=== PATIENT | female | born 1995 | race Hispanic/Latino ===

== ENCOUNTER 2021-08-22 10:04 | Emergency (ER) | payer SELFPAY ==
[2021-08-22 11:32] LABS: Bacteria,Urine 1+ /HPF (Negative); Bilirubin,Urine NEG (Negative); Blood,Urine LG (Negative); Color,Urine Yellow (Yellow); Mucus,Urine 2+ /HPF; Urobilinogen,Urine < 2.0 mg/dL (<2.0)
[2021-08-22 11:37] LABS: HCG Qualitative,Urine Negative (Negative)
[2021-08-22] MEDS ORDERED: LIDOCAINE-MPF (1%) 10 MG/1 ML VIAL 5 ML INFILTRATI ONE (12:23)
--- NOTE | 2021-08-22 12:24 | Emergency Department Report ---
ED Female HPI - General Chief complaint: Urogenital-Female Stated complaint: VAGINAL DISCHARGE Time Seen by Provider: 08/22/21 12:10 Source: patient Mode of arrival: Ambulatory Limitations: No Limitations - History of Present Illness Initial comments: 25-year-old female presents to the emergency room planing that she is having some vaginal discharge and vaginal bleeding. She is concerned she may have STD will like to be treated. Patient reports she has a history of anxiety asthma PCOS and diabetes. She states that she feels this way sometimes her blood sugars at work. Blood sugar today was 171. Patient is currently being treated with Metformin. She denies any alcohol use over the holidays. States that she is allergic to latex and aspirin. MD Complaint: vaginal discharge, possible STD Onset/Timin -: days(s) Location: suprapubic Severity: mild Severity scale (0 -10): 0 Improves with: none Worsens with: none Are you Now?: No Last Menstrual Period: 08/20/21 EDC: 05/27/22 - Related Data Sexually active: Yes Previous Rx's Medication Instructions Recorded Last Taken Type Amoxicillin/K Clav Tab [Augmentin 1 tab PO Q12HR #20 tab 03/26/16 Unknown Rx 875 mg] Doxycycline Hyclate [Doxycycline 100 mg PO Q12HR 10 Days #20 tab 08/22/21 Unknown Rx Hyclate TAB] Allergies Allergy/AdvReac Type Severity Reaction Status Date / Time aspirin Allergy Unknown Verified 03/26/16 16:26 Latex, Natural Rubber Allergy Unknown Verified 03/26/16 16:26 ED Review of Systems ROS: Stated complaint: VAGINAL DISCHARGE Other details as noted in HPI Comment: All other systems reviewed and negative ED Past Medical Hx - Past Medical History Previous Medical History?: Yes Hx Asthma: Yes - Surgical History Past Surgical History?: No - Social History Smoking Status: Never Smoker Substance Use Type: None - Medications Home Medications: Home Medications Medication Instructions Recorded Confirmed Last Taken Type Amoxicillin/K Clav Tab [Augmentin 1 tab PO Q12HR #20 tab 03/26/16 Unknown Rx 875 mg] Doxycycline Hyclate [Doxycycline 100 mg PO Q12HR 10 Days #20 tab 08/22/21 Unknown Rx Hyclate TAB] ED Physical Exam - General Limitations: No Limitations General appearance: alert, in no apparent distress - Head Head exam: Present: atraumatic, normocephalic - Eye Eye exam: Present: normal appearance - ENT ENT exam: Present: mucous membranes moist - Neck Neck exam: Present: normal inspection - Respiratory Respiratory exam: Present: normal lung sounds bilaterally. Absent: respiratory distress - Cardiovascular Cardiovascular Exam: Present: regular rate, normal rhythm. Absent: systolic murmur, diastolic murmur, rubs, gallop - GI/Abdominal GI/Abdominal exam: Present: soft, normal bowel sounds - Extremities Exam Extremities exam: Present: normal inspection - Back Exam Back exam: Present: normal inspection - Neurological Exam Neurological exam: Present: alert, oriented X3 - Psychiatric Psychiatric exam: Present: normal affect, normal mood - Skin Skin exam: Present: warm, dry, intact, normal color. Absent: rash ED Course Vital Signs 08/22/21 10:12 Temperature 97.6 F Pulse Rate 81 Respiratory 16 Rate Blood Pressure 119/89 [Left] O2 Sat by Pulse 95 Oximetry ED Medical Decision Making - Lab Data Lab Results 08/22/21 08/22/21 Range/Units 10:11 Unknown POC Glucose 171 H (70-105) mg/dL Urine Color Yellow (Yellow) Urine Turbidity Cloudy (Clear) Urine pH 5.0 (5.0-7.0) Ur Specific [place] 1.026 (1.003-1.030) Urine Protein 30 mg/dl (Negative) mg/dL Urine Glucose (UA) Neg (Negative) mg/dL Urine Ketones Neg (Negative) mg/dL Urine Blood Lg (Negative) Urine Nitrite Neg (Negative) Urine Bilirubin Neg (Negative) Urine Urobilinogen < 2.0 (<2.0) mg/dL Ur Leukocyte Esterase Lg (Negative) Urine WBC (Auto) 49.0 H (0.0-6.0) /HPF Urine RBC (Auto) 19.0 (0.0-6.0) /HPF U Epithel Cells (Auto) 15.0 H (0-13.0) /HPF Urine Bacteria (Auto) 1+ (Negative) /HPF Urine Mucus 2+ /HPF Urine HCG, Qual Negative (Negative) - Medical Decision Making 25-year-old female presents to the emergency room planing that she is having some vaginal discharge and vaginal bleeding. She is concerned she may have STD will like to be treated. Patient reports she has a history of anxiety asthma PCOS and diabetes. She states that she feels this way sometimes her blood sugars at work. Blood sugar today was 171. Patient is currently being treated with Metformin. She denies any alcohol use over the holidays. States that she is allergic to latex and aspirin. Critical care attestation.: If time is entered above; I have spent that time in minutes in the direct care of this critically ill patient, excluding procedure time. ED Disposition Clinical Impression: UTI (urinary tract infection), Concern about STD in female without diagnosis Disposition: HOME / SELF CARE / HOMELESS Is pt being admited?: No Does the pt Need Aspirin: No Condition: Stable Instructions: Urinary Tract Infection, Adult, [id number] Additional Instructions: Complete antibiotics as prescribed. You are diagnosed with a urinary tract infection is concern for STD. Please be sure that your partner is tested and treated. Be sure to increase your fluids advance your diet as tolerated. I recommend going to the health department for full STD evaluation. Refrain from having any intercourse with your partner until he is tested and treated. Prescriptions: Doxycycline Hyclate [Doxycycline Hyclate TAB] 100 mg PO Q12HR 10 Days #20 tab Referrals: [facility] [Outside] - 3-5 Days Time of Disposition: 12:26
[2021-08-22 13:05] VITALS: BP 129/67
== END 2021-08-22 13:04 | disposition home or self-care (01) ==
LOC: ED 10:04
DX: N39.0 Urinary tract infection, site not specified (principal); J45.909 Unspecified asthma, uncomplicated
CPT/HCPCS: 81001; 81025; 82962; 87086; 96372; 99283; J0696; J3490

== ENCOUNTER 2021-11-03 19:13 | Emergency (ER) | payer SELFPAY ==
--- NOTE | 2021-11-03 20:05 | Emergency Department Report ---
ED Female HPI - General Chief complaint: Urogenital-Female Stated complaint: LUMP ON VAGINA Time Seen by Provider: 11/03/21 19:51 Source: patient Mode of arrival: Ambulatory Limitations: No Limitations - History of Present Illness Initial comments: 26-year-old female presents to the ER today complaining of a swollen area to her left vaginal area. She states that she noticed it a week ago which has been getting bigger. She states that is not painful and is not itching. She denies any injury or trauma. She denies any drainage from the area. She denies similar symptoms in the past. She also can states that she is concerned for possible bacterial vaginosis as she has had a vaginal odor and she has had history of BV in the past with similar odor. She denies any abnormal discharge. She reports same sexual partner and is states that she is not concerned for any STDs. She denies any pelvic pain, abdominal pain, back pain or UTI symptoms. She states that her last menstrual cycle was about 2 weeks ago and normal. MD Complaint: other (swelling, vaginal area) -: week(s) (1) Location: labia - Related Data Previous Rx's Medication Instructions Recorded Last Taken Type Clindamycin [Clindamycin CAP] 300 mg PO Q8H #30 cap 11/03/21 Unknown Rx Fluconazole [Diflucan TAB] 200 mg PO QDAY #2 tablet 11/03/21 Unknown Rx metroNIDAZOLE [Flagyl] 500 mg PO Q12HR #14 tab 11/03/21 Unknown Rx Allergies Allergy/AdvReac Type Severity Reaction Status Date / Time aspirin Allergy Unknown Verified 03/26/16 16:26 Latex, Natural Rubber Allergy Unknown Verified 03/26/16 16:26 ED Review of Systems ROS: Stated complaint: LUMP ON VAGINA Other details as noted in HPI ED Past Medical Hx - Past Medical History Hx Asthma: Yes - Social History Smoking Status: Never Smoker Substance Use Type: None - Medications Home Medications: Home Medications Medication Instructions Recorded Confirmed Last Taken Type Clindamycin [Clindamycin CAP] 300 mg PO Q8H #30 cap 11/03/21 Unknown Rx Fluconazole [Diflucan TAB] 200 mg PO QDAY #2 tablet 11/03/21 Unknown Rx metroNIDAZOLE [Flagyl] 500 mg PO Q12HR #14 tab 11/03/21 Unknown Rx ED Physical Exam - General Limitations: No Limitations ED Course Vital Signs 11/03/21 19:17 Temperature 98.0 F Pulse Rate 69 Respiratory 16 Rate Blood Pressure 154/75 O2 Sat by Pulse 98 Oximetry ED Medical Decision Making - Medical Decision Making 2019: Exam show swollen left bartholins cyst that non painful and without cellulitis or drainage. Patient antibiotic to cover for any possible developing infection. Patient also concerned for BV with vaginal odor and reports history of BV with similar symptoms in the past. She states that she is not concerned for STDs. She has no pelvic or abdominal pain or back pain or UTI symptoms. Patient will be given prescription also for Flagyl for the BV and she is also requesting Diflucan for yeast infection. Patient understands that if her symptoms worsen she needs to return to the ER. Critical care attestation.: If time is entered above; I have spent that time in minutes in the direct care of this critically ill patient, excluding procedure time. ED Disposition Clinical Impression: Bartholin cyst, Vaginal odor, BV (bacterial vaginosis) Disposition: HOME / SELF CARE / HOMELESS Is pt being admited?: No Does the pt Need Aspirin: No Condition: Stable Instructions: Bacterial Vaginosis, Bartholin's Cyst, [id number], Bacterial Vaginosis (ED) Additional Instructions: I recommend I take the Flagyl and the clindamycin as prescribed. Recommend that you use a gentle vaginal wash daily. Warm sitz bath. Follow-up with [facility]. Return to the ER if symptoms worsens in any way. Prescriptions: Clindamycin [Clindamycin CAP] 300 mg PO Q8H #30 cap Fluconazole [Diflucan TAB] 200 mg PO QDAY #2 tablet metroNIDAZOLE [Flagyl] 500 mg PO Q12HR #14 tab Referrals: [facility] [Provider Group] - 3-5 Days Forms: STI Treatment and Prevention Time of Disposition: 20:06
[2021-11-03 20:44] VITALS: BP 141/80
== END 2021-11-03 20:42 | disposition home or self-care (01) ==
LOC: ED 19:13
DX: N75.0 Cyst of Bartholin's gland (principal); N89.8 Other specified noninflammatory disorders of vagina; N77.1 Vaginitis, vulvitis and vulvovaginitis in diseases classified elsewhere; Z88.6 Allergy status to analgesic agent; J45.909 Unspecified asthma, uncomplicated; Z91.040 Latex allergy status
CPT/HCPCS: 99282